=== PATIENT | male | born 1960 ===

== ENCOUNTER 2019-04-22 13:20 | Emergency (ER) | payer OTHER ==
[2019-04-22 13:28] VITALS: BMI 25.0
[2019-04-22 13:37] VITALS: TEMP 98.2; O2SAT 98
--- NOTE | 2019-04-22 14:12 | ED PDOC ---
Arrival/HPI <Diaz Cortes - Last Filed: 04/22/19 14:46> - General Historian: Patient - History of Present Illness Narrative History of Present Illness (Text): 04/22/19 14:08 CC: passed out multiple times HPI: 58 yo male w/ PMH of ?PD vs MS, HTN, and resting tremor comes to ED for evaluation of syncopal episodes. Of note patient was at PMD's office, Dr. Duncan, where had an episode of lightheadedness with floaters and felt that he was about to pass out. Dr. Duncan brought him into the ED for workup of syncope. Patient states the first syncopal episode occurred 7 days on when he stood up and had similar symptoms of lightheadedness w/ floaters and passed out. Patient states that on Friday he had another episode but this time he had been walking for quiet some time. Patient reports during these episodes he has noted that his right arm also becomes numb. Denies fevers, chills, chest pain, sob, n/v, constipation or diarrhea, and dysuria. Time/Duration: > week Symptom Onset: Sudden Symptom Course: Unchanged Severity Level: 7 Context: Standing, Walking <Alhaji Monteroaser - Last Filed: 04/22/19 18:21> - General Chief Complaint: Syncope Time Seen by Provider: 04/22/19 13:27 Past Medical History - Provider Review Nursing Documentation Reviewed: Yes - Neurological Hx Multiple Sclerosis: Yes - Musculoskeletal/Rheumatological Hx Arthritis: Yes Hx Osteoarthritis: Yes - Psychiatric Hx Substance Use: Yes - Surgical History Other/Comment: Rt Clavical Sx <WinstonAlhajiaser - Last Filed: 04/22/19 18:21> Family/Social History - Physician Review Nursing Documentation Reviewed: Yes Family/Social History: No Known Family HX Smoking Status: Heavy Smoker > 10 Cigarettes Daily Hx Alcohol Use: Yes Frequency of alcohol use: Socially Hx Substance Use: Yes Substance used: marijuana <Alhaji Monteroaser - Last Filed: 04/22/19 18:21> Allergies/Home Meds <Diaz Cortes - Last Filed: 04/22/19 14:46> <WinstonMadaser - Last Filed: 04/22/19 18:21> Allergies/Adverse Reactions: Allergies No Known Allergies Allergy (Verified 04/22/19 13:27) Review of Systems - Review of Systems Constitutional: Normal. absent: Fatigue, Weight Change, Fevers Eyes: Other (floaters). absent: Normal, Vision Changes, Photophobia, Eye Pain ENT: Normal. absent: Hearing Changes, Tinnitus, TMJ Pain Respiratory: Normal. absent: SOB, Cough, Sputum, Wheezing Cardiovascular: Syncope. absent: Normal, Chest Pain, Palpitations, Edema, Calf Pain Gastrointestinal: Normal. absent: Abdominal Pain, Stool Changes, Constipation, Nausea, Vomiting Genitourinary Male: Normal. absent: Dysuria, Frequency, Hematuria Musculoskeletal: Normal. absent: Arthralgias, Back Pain, Neck Pain Skin: Normal. absent: Rash, Pruritis, Skin Lesions Neurological: Other (right upper extremity numbness, lightheaded). absent: Normal, Headache, Dizziness, Gait Changes Endocrine: Normal. absent: Diaphoresis, Polyuria, Polydipsia Psychiatric: Normal. absent: Anxiety, Depression <Meghann Montero - Last Filed: 04/22/19 18:21> Physical Exam Vital Signs Temp Pulse Resp BP Pulse Ox 04/22/19 13:35 98.2 F 68 19 155/70 H 98 <Diaz Cortes - Last Filed: 04/22/19 14:46> Vital Signs Reviewed: Yes Vital Signs Temp Pulse Resp BP Pulse Ox 04/22/19 13:35 98.2 F 68 19 155/70 H 98 Temperature: Afebrile Blood Pressure: Hypertensive Pulse: Regular Respiratory Rate: Normal Appearance: Positive for: Well-Appearing, Non-Toxic, Comfortable Pain Distress: None Mental Status: Positive for: Alert and Oriented X 3 - Systems Exam Head: Present: Atraumatic, Normocephalic Pupils: Present: PERRL Extroacular Muscles: Present: EOMI Conjunctiva: Present: Normal Mouth: Present: Moist Mucous Membranes Respiratory/Chest: Present: Clear to Auscultation, Good Air Exchange. No: Respiratory Distress, Accessory Muscle Use Cardiovascular: Present: Regular Rate and Rhythm, Normal S1, S2. No: Murmurs Abdomen: Present: Tenderness, Normal Bowel Sounds. No: Distention, Peritoneal Signs, Rebound, Guarding Breast/Axillary: Present: Erythema Upper Extremity: Present: Normal Inspection. No: Cyanosis, Edema Lower Extremity: Present: Normal Inspection. No: Edema, CALF TENDERNESS Neurological: Present: GCS=15, CN II-XII Intact, Speech Normal Skin: Present: Warm, Dry, Normal Color. No: Rashes Psychiatric: Present: Alert, Oriented x 3, Normal Insight, Normal Concentration <WinstonMeghann - Last Filed: 04/22/19 18:21> Medical Decision Making - RAD Interpretation Radiology Orders: 04/22/19 14:03 HEAD W/O CONTRAST [CT] Stat 04/22/19 14:10 CXR [CHEST TWO VIEWS (PA/LAT)] [RAD] Stat - EKG Interpretation EKG Interpretation (Text): 04/22/19 13:23 NSR @ 69 bpm, nml qrs, nml axis, no acute sttw abn. Interpreted by ED Physician: Yes Type: 12 lead EKG <Diaz Cortes - Last Filed: 04/22/19 14:46> ED Course and Treatment: 04/22/19 14:22 Impression 58 yo male w/ PMH of ?PD vs MS, HTN, and resting tremor comes to ED for evaluation of syncopal episodes. Plan -CBC -CMP -CPK -CXR -CT head -Lipid Panel -PT/PTT -CPK -TSH -Trop -Mag -Marketing Sales Representative Prior Visits All prior documentation and lab work reviewed prior to evaluation Progress Notes pending labs 04/22/19 18:07 Patient re-evaluated and complaining of back pain; Ordered Tylenol 650mg pending full reads of imaging then will call PMD, Dr. Duncan. 04/22/19 18:14 CT head/neck resulted with no abnormalities noted Placed call to PMD, Dr. Duncan, awaiting call back 04/22/19 18:18 Dr. Duncan called back and stated after lab results and imaging were shared that patient can be dc'ed with instructions to f/u at Dr. Torsten Harp Re-evaluation Time: 18:18 Reassessment Condition: Re-examined, Unchanged - Lab Interpretations Lab Results: 04/22/19 14:10 04/22/19 14:10 Lab Results 04/22/19 14:10: TSH 3rd Generation 2.77 04/22/19 14:10: PT 12.0, INR 1.06, APTT 27.2 04/22/19 14:10: Sodium 139, Potassium 4.6, Chloride 110 H, Carbon Dioxide 23, Anion Gap 11, BUN 17, Creatinine 0.9, Est GFR ( Amer) > 60, Est GFR (Non- Af Amer) > 60, Random Glucose 85, Calcium 9.2, Magnesium 2.1, Total Bilirubin 0.4, AST 26, ALT 31, Alkaline Phosphatase 72, Total Creatine Kinase 65, Troponin I < 0.01, Total Protein 7.3, Albumin 4.1, Globulin 3.2, Albumin/Globulin Ratio 1.3, Triglycerides 351 H, Cholesterol 130, LDL Cholesterol Direct 73, HDL Cholesterol 27 L 04/22/19 14:10: WBC 11.0, RBC 5.46, Hgb 15.8, Hct 47.3, MCV 86.6, MCH 28.9, MCHC 33.4, RDW 12.9, Plt Count 322, MPV 8.0, Neut % (Auto) 46.1 L, Lymph % (Auto) 41.7 H, [place] % (Auto) 6.4 H, Eos % (Auto) 5.4 H, Baso % (Auto) 0.4, Lymph # (Auto) 4.6 H, [place] # (Auto) 0.7 H, Eos # (Auto) 0.6, Baso # (Auto) 0.04, Absolute Neuts (auto) 5.08 I have reviewed the lab results: Yes Interpretation: All labs normal (except TGs) - RAD Interpretation Radiology Orders: 04/22/19 14:03 HEAD W/O CONTRAST [CT] Stat Radiology Results Head/Neck CTA 04/22/19 15:50 IMPRESSION: 1. No large vessel occlusion or significant stenosis demonstrated by CT angiography of the brain. No definite aneurysm or arteriovascular malformation identified either. 2. No significant stenosis bilateral common or internal carotid or bilateral vertebral arteries. Limited soft and hard plaque noted at the bilateral carotid bulbs. 3. Three vessel aortic arch appreciated. <Meghann Montero - Last Filed: 04/22/19 18:21> Disposition/Present on Arrival - Disposition Disposition Time: 14:40 <Diaz Cortes - Last Filed: 04/22/19 14:46> - Present on Arrival Any Indicators Present on Arrival: No History of DVT/PE: No History of Uncontrolled Diabetes: No Urinary Catheter: No History of Decub. Ulcer: No History Surgical Site Infection Following: None - Disposition Have Diagnosis and Disposition been Completed?: Yes Patient Plan: Discharge <Meghann Montero - Last Filed: 04/22/19 18:21> - Disposition Diagnosis: Arm paresthesia, right Disposition: HOME/ ROUTINE Condition: FAIR Additional Instructions: 1. Please followup with neurologist Dr. Torsten Harp for further management 2. Please followup with primary medical doctor within a week of discharge from hospital 3. Please return to hospital if symptoms worsen Referrals: Torsten Harp MD [Staff Provider] - Follow up with primary Forms: Soft Tissue Regeneration (Martiniquais)
[2019-04-22 14:30] LABS: BASO # 0.04 K/mm3 (0.0-2.0); BASO % 0.4 % (0.0-3.0); EOS # 0.6 (0.0-0.7); EOS % 5.4 % (1.5-5.0); HEMOGLOBIN 15.8 g/dL (14.0-18.0); LYMPH # 4.6 (1.2-3.4); LYMPH % 41.7 % (22.0-35.0); MEAN CELL VOLUME 86.6 fl (80.0-105.0); MEAN CORPUSCULAR HEMOGLOBIN 28.9 pg (25.0-35.0); MEAN CORPUSCULAR HGB CONC 33.4 g/dl (31.0-37.0); MONO # 0.7 (0.1-0.6); MONO % 6.4 % (1.0-6.0); RBC 5.46 10^6/uL (3.5-6.1); RED CELL DISTRIBUTION WIDTH 12.9 % (11.5-14.5)
[2019-04-22 14:43] LABS: INR 1.06; PARTIAL THROMBOPLASTIN TIME 27.2 Seconds (26.9-38.3)
[2019-04-22 14:51] LABS: ALBUMIN 4.1 g/dL (3.0-4.8); BLOOD UREA NITROGEN 17 mg/dL (7-21); CALCIUM 9.2 mg/dL (8.4-10.5); GFR NON-AFRICAN AMERICAN > 60
[2019-04-22 14:52] LABS: ALB/GLOB RATIO 1.3 (1.1-1.8); ALT/SGPT 31 U/L (7-56); AST/SGOT 26 U/L (17-59); HDL CHOLESTEROL 27 mg/dL (29-60); LDL CHOLESTEROL 73 mg/dL (0-129); TROPONIN I < 0.01 ng/mL
[2019-04-22 17:49] VITALS: BP 141/78; PULSE 71; RESP 18
--- NOTE | 2019-04-22 18:10 | CT ---
Date of service: 04/22/2019 PROCEDURE: CT Angiography of the Brain and Neck. HISTORY: numbness in right upper extremity COMPARISON: None available. TECHNIQUE: CT angiography of the head and neck was performed following intravenous contrast administration. Coronal and sagittal maximum intensity projection reformatted images were generated. Contrast Dose: Omnipaque 350, 146 cc Radiation dose: Total exam DLP = 562.92 mGy-cm. This CT exam was performed using one or more of the following dose reduction techniques: Automated exposure control, adjustment of the mA and/or kV according to patient size, and/or use of iterative reconstruction technique. FINDINGS: INTERNAL CEREBRAL ARTERIES: Unremarkable. The skull base, petrous, cavernous and supraclinoid segments are bilaterally widely patent. ANTERIOR CEREBRAL ARTERIES: Unremarkable. A1 and A2 segments are widely patent. Smaller distal branches unremarkable, as visualized. MIDDLE CEREBRAL ARTERIES: Unremarkable. M1 and M2 segments are widely patent. Perisylvian branches grossly symmetric. POSTERIOR CIRCULATION: Basilar Artery: Unremarkable. Distal Vertebral Arteries: Left dominant vertebrobasilar circulation. Posterior Cerebral Arteries: Unremarkable. Posterior Inferior Cerebellar Arteries: Unremarkable. NECK CTA: Aortic Arch: Normal three vessel arch identified. Common Carotid arteries: The bilateral common carotid appear widely patent from their origins to their bifurcations with no significant stenosis appreciated. No evidence to suggest common carotid artery dissection. Limited soft and hard plaque noted at the bilateral carotid bulbs. Internal Carotid arteries: No significant stenosis is appreciated throughout the cervical internal carotid artery segments bilaterally and there is no evidence of dissection either. External Carotid arteries: Appear unremarkable bilaterally. Vertebral arteries: The bilateral vertebral arteries appear normal in caliber from their origins to their distal cervical segments. No significant stenosis or definite pattern of dissection. ANEURYSM/ VASCULAR MALFORMATIONS: None. OTHER FINDINGS: Emphysematous changes are identified at the right side greater than left pulmonary apex. IMPRESSION: 1. No large vessel occlusion or significant stenosis demonstrated by CT angiography of the brain. No definite aneurysm or arteriovascular malformation identified either. 2. No significant stenosis bilateral common or internal carotid or bilateral vertebral arteries. Limited soft and hard plaque noted at the bilateral carotid bulbs. 3. Three vessel aortic arch appreciated.
--- NOTE | 2019-04-22 19:12 | RAD ---
Date of service: 04/22/2019 HISTORY: Cough common pneumonia suspected. COMPARISON: No prior. TECHNIQUE: Chest PA and lateral views FINDINGS: LUNGS: No active pulmonary disease. PLEURA: No significant pleural effusion identified. No pneumothorax apparent. CARDIOVASCULAR: No aortic atherosclerotic calcification present. Normal cardiac size. No pulmonary vascular congestion. OSSEOUS STRUCTURES: No significant abnormalities. VISUALIZED UPPER ABDOMEN: Normal. OTHER FINDINGS: None. IMPRESSION: No active disease.
--- NOTE | 2019-04-22 19:38 | CARD ---
APPROVED REPORT Date of service: 04/22/2019 EKG Measurement Heart [id number] NM [id number] <Conclusion> Poor data quality, interpretation may be adversely affected Normal sinus rhythm Normal ECG
== END 2019-04-22 19:13 | disposition home or self-care (01) ==
LOC: ED 13:20
DX: R20.2 Paresthesia of skin (principal); I10 Essential (primary) hypertension; G35 Multiple sclerosis; F17.210 Nicotine dependence, cigarettes, uncomplicated
CPT/HCPCS: 70496; 70498; 71046; 80053; 80061; 82550; 83735; 84443; 84484; 85025; 85610; 85730; 93005; 99285; Q9967